=== PATIENT | female | born 1945 | race Caucasian/White ===

== ENCOUNTER → 2018-12-09 | Outpatient (CLI) | payer MEDICARE, MEDICAID ==
[~2018-12-09] MED LIST: ADV50050 INHALATION; ALBU18HF IH; ALPR1TAB11 PO; ATOR10TA23; DEXL60CA2; DOXE10CA PO; GEMF600T8 PO; HYDR-3498 PO; MEMA10TA PO; METF500T24 PO; PANT40TA3 PO; SERT-165 PO
== END | disposition home or self-care (01) ==
LOC: RAD 13:06
PROVIDERS: ATTEND Specialist
DX: M54.5 Low back pain (principal)
CPT/HCPCS: 72100; 72170; 73520